=== PATIENT | male | born 1975 | race Caucasian/White ===

== ENCOUNTER 2018-12-14 15:32 | Inpatient (IN) ==
[2018-12-14 16:10] LABS: Basophils % 0.2 %; Eosinophils % 0.2 %; Hematocrit 38.6 % (37.5-50.1); Hemoglobin 13.8 g/dL (12.9-16.9); Immature Granulocytes % 0.4 % (0-4); Lymphocytes # 1.9 K/mcL (0.6-4.6); Lymphocytes % 15.6 %; Mean Corpuscular HGB Conc 35.8 g/dL (31.6-35.5); Mean Corpuscular Hemoglobin 29.5 pg (28.0-33.3); Mean Corpuscular Volume 82.5 fL (83.0-100.0); Mean Platelet Volume 8.9 fL (9.4-12.4); Monocytes # 1.4 K/mcL (0.0-1.3); Monocytes % 11.5 %; Neutrophils # 8.9 K/mcL (1.6-8.9); Platelet Count 234 K/mcL (140-400); Red Blood Count 4.68 M/mcL (4.19-5.50); Red Cell Distribution Width 12.4 % (11.5-14.5); Segmented Neutrophils % 72.1 %
[2018-12-14] MEDS ORDERED: Isovue-370 500 ML BOTTLE IVP ONE (16:16)
[2018-12-14] MEDS ORDERED: 0.9 % Sodium Chloride 1,000 ML IVC ONE (16:26)
--- NOTE | 2018-12-14 16:26 | Emergency Department Note ---
Disposition Clinical Impression: Acute appendicitis Qualifiers: Acute appendicitis type: with localized peritonitis Appendicitis gangrene presence: unspecified whether gangrene present Appendicitis perforation presence: with perforation Appendicitis abscess presence: with abscess Qualified Code(s): K35.33 - Acute appendicitis with perforation and localized peritonitis, with abscess Disposition: Admitted As Inpatient Condition: Fair Time of Disposition: 17:16 General Adult HPI - General Chief complaint: ED Abdominal Pain Stated complaint: abd pain Time Seen by Provider: 12/14/18 15:42 Source: patient, family Limitations: no limitations Nursing Notes Reviewed: Yes Vital Signs Reviewed: Yes - History of Present Illness HPI Narrative: Right lower quadrant pain which is a sore sensation and began last night at home and is constant and worse when he moves his body and he has had a appendectomy will abscess in the past but has never had a appendectomy. Temperature last night 101 degrees. The night before was 100 degrees but does not have abdominal pain at that time. He denies any dysuria or urinary frequency, blood in the urine or stool, testicular pain or penile discharge. No vomiting or diarrhea. Social history: No smoking or alcohol Pain Scale: 0 - Related Data Home Medications Medication Instructions Recorded Confirmed RX: No Known Home Drugs 12/14/18 12/14/18 Allergies Allergy/AdvReac Type Severity Reaction Status Date / Time No Known Allergies Allergy Verified 07/21/16 16:34 All systems ED: reviewed and negative except as stated. Past Medical History - Past Medical History Medical history: Reports: other Psychiatric history: Reports: no psych history - Social History Smoking Status: Never smoker Smokeless Tobacco Status: No Alcohol use: Reports: none Drug use: Reports: none Physical Exam CONSTITUTIONAL: Alert and oriented X3, well-nourished, well appearing, in no apparent distress HEAD: Normocephalic; atraumatic. EYES: PERRL, no scleral icterus. NOSE: The nose is normal in appearance without rhinorrhea RESP: Normal chest excursion with respiration; breath sounds clear and equal b ilaterally; no wheezes, rhonchi, or rales CARD: Regular rhythm, without murmurs, rub or gallop ABD: Non-distended; normal appearance, does have minimal pain with palpation just lateral to McBurney's point but soft without rigidity, rebound, guarding. Elsewhere the abdomen is non-tender, soft,without rigidity, rebound or guarding SKIN: Normal for age and race; warm and dry; no apparent lesions : Penis and testicles are normal appearance, no hernias are palpated, no penile discharge. No masses. - General Limitations: no limitations General appearance: alert, in no apparent distress Course Vital Signs Temperature 99.5 F 12/14/18 15:33 Pulse Rate 110 12/14/18 15:33 Respiratory Rate 20 12/14/18 15:33 Blood Pressure 135/82 12/14/18 15:33 O2 Sat by Pulse Oximetry 99 12/14/18 15:33 Temperature 98.0 F 12/14/18 22:16 Pulse Rate 86 12/14/18 22:16 Respiratory Rate 16 12/14/18 22:16 Blood Pressure 112/74 12/14/18 22:16 O2 Sat by Pulse Oximetry 98 12/14/18 21:25 Oxygen Delivery Oxygen Delivery Room Air Medical Decision Making - MDM Narrative Medical decision making narrative: Laboratory evaluation, IV contrast CT, results pending. Urine testing. 1626 I spoke with Col Rad and pt w retroperitoneal abscess into the psosas muscle and iliacus muscle and likely a retained appendolith. It is [id number] Ferguson who accepts for admission andzosyn and no flagyl and she will take for [facility] [place] [employer] 1729 - Lab Data Lab results reviewed: Yes I reviewed the patient's lab results. Result diagrams: 12/14/18 15:45 12/14/18 15:45 Lab Results 12/14/18 12/14/18 12/14/18 Range/Units 15:45 15:45 16:49 WBC 12.4 H (4.3-11.1) K/mcL RBC 4.68 (4.19-5.50) M/mcL Hgb 13.8 (12.9-16.9) g/dL Hct 38.6 (37.5-50.1) % MCV 82.5 L (83.0-100.0) fL MCH 29.5 (28.0-33.3) pg MCHC 35.8 H (31.6-35.5) g/dL RDW 12.4 (11.5-14.5) % Plt Count 234 (140-400) K/mcL MPV 8.9 L (9.4-12.4) fL Immature Gran % 0.4 (0-4) % Seg Neutrophils % 72.1 % Lymphocytes % 15.6 % Monocytes % 11.5 % Eosinophils % 0.2 % Basophils % 0.2 % Neutrophils # 8.9 (1.6-8.9) K/mcL Lymphocytes # 1.9 (0.6-4.6) K/mcL Monocytes # 1.4 H (0.0-1.3) K/mcL Eosinophils # 0.0 (0.0-0.6) K/mcL Basophils # 0.0 (0.0-0.2) K/mcL Sodium 132 L (136-145) mEq/L Potassium 3.8 (3.5-5.1) mEq/L Chloride 96 L (98-107) mEq/L Carbon Dioxide 24 (23-29) mEq/L BUN 17 (6-20) mg/dL Creatinine 0.96 (0.70-1.30) mg/dL Est GFR ( Amer) > 60 (> 60) Est GFR (Non-Af Amer) > 60 (> 60) BUN/Creatinine Ratio 18 (6-26) Glucose 99 (70-105) mg/dL Calculated Osmolality 276 L (280-300) Calcium 9.3 (8.6-10.3) mg/dL Urine Color Yellow (Yellow) Urine Clarity Clear (Clear) Urine pH 5.5 (5.0-8.0) pH Units Ur Specific [place] 1.018 (1.010-1.025) Urine Protein Negative (Neg-Trace) mg/dL Urine Glucose (UA) Normal (Normal) mg/dL Urine Ketones 40 H (Negative) mg/dL Urine Blood Negative (Negative) Urine Nitrite Negative (Negative) Urine Bilirubin Negative (Negative) Urine Urobilinogen Normal (Normal) mg/dL Ur Leukocyte Esterase Negative (Negative) - Radiology Data Radiology results reviewed: Yes I reviewed the patient's radiology results. Critical Care Time Critical Care Time: No
[2018-12-14 16:28] LABS: BUN/Creatinine Ratio 18 (6-26); Blood Urea Nitrogen 17 mg/dL (6-20); Calcium 9.3 mg/dL (8.6-10.3); Carbon Dioxide 24 mEq/L (23-29); Chloride 96 mEq/L (98-107); Glucose 99 mg/dL (70-105); Osmolality,Calculated 276 (280-300); Potassium 3.8 mEq/L (3.5-5.1); Sodium 132 mEq/L (136-145); eGFR For Non-African Americans > 60 (> 60)
[2018-12-14] MEDS ORDERED: Piperacillin/Tazobactam 3.375 GM in 0.9 % Sodium Chloride Mini Bag 100 ML IVPB ONE (17:16)
[2018-12-14] MEDS ORDERED: MetroNIDAZOLE 500 MG/100 ML 500 MG/100 ML BAG IVPB ONE (17:17)
[2018-12-14 17:23] LABS: Bilirubin,Urine Negative (Negative); Blood,Urine Negative (Negative); Clarity,Urine Clear (Clear); Color,Urine Yellow (Yellow); Glucose,Urine (UA) Normal (Normal); Ketones,Urine 40 mg/dL (Negative); Leukocyte Esterase,Urine Negative (Negative); Nitrite,Urine Negative (Negative); PH,Urine 5.5 pH Units (5.0-8.0); Protein,Urine Negative (Neg-Trace); Specific Gravity,Urine 1.018 (1.010-1.025); Urobilinogen,Urine Normal (Normal)
--- NOTE | 2018-12-14 17:42 | General Surg History&Physical ---
Date of Encounter: 12/14/18 Time of Encounter: 17:30 Assessment and Plan (1) Acute appendicitis Current Visit: Yes Status: Acute The assessment and plan as outlined above was discussed with the patient and/or family members who expressed understanding and agreement. All questions were answered. Pt diagnosis of ruptured acute appendicitis is discussed. Laparoscopic Drainage with possible Appendectomy is recommended. Procedure for the surgery, risks and benefits are discussed in detail. Possible known complications for Laparoscopic Drainage with possible Appendectomy are bleeding, infection, ureteral injury, small intestine or colon injury, bladder injury, stroke, DVT/PE, MT or . Pt understands these risks, which in this case are low. Pt wishes to proceed with surgery as soon as possible. Informed consent is obtained. Pt condition is stable. Surgery is scheduled. Qualifiers: Acute appendicitis type: with localized peritonitis Appendicitis gangrene presence: unspecified whether gangrene present Appendicitis perforation presence: with perforation Appendicitis abscess presence: with abscess Qualified Code(s): K35.33 - Acute appendicitis with perforation and localized peritonitis, with abscess History of Present Illness Chief complaint: RLQ abdominal pain HPI: Mr. Armijo is a 43 year old male Pt presents to [facility] ED c/o severe RLQ abdominal pain. The pain has progressively worsened over the last day. Pain reportedly began around the belly button and has settled in RLQ. Pt reports nausea without vomiting. He has had a ruptured appendix before that was not followed-up for definitive surgery d/t pt's schedule. He states this pain is the same. Pt denies changes in urination or bowel movements. Reports +fever. Past Med Surg Social Fam HX - Past Medical History Medical history: other Additional medical history: appenicitis Psychiatric history: no psych history - Social History Smoking Status: Never smoker Smokeless Tobacco Status: No Alcohol use: none Drug use: none Medications and Allergies No Known Home Drugs 12/14/18 [History] Allergy/AdvReac Type Severity Reaction Status Date / Time No Known Allergies Allergy Verified 07/21/16 16:34 Review of Systems All systems PM: The remainder of the systems were reviewed and are negative - Constitutional as per HPI, anorexia, chills, fever(s), no weakness, no weight loss - EENT Nose, mouth and throat: dry mouth, nasal congestion, nasal discharge, sinus pain, sinus pressure, no dysphagia, no sore throat, no throat swelling - Cardiovascular no chest pain, no diaphoresis, no dyspnea, no edema - Respiratory cough, no dyspnea, no wheezing - Gastrointestinal abdominal pain, bloating, constipation, nausea, no diarrhea, no vomiting - Genitourinary difficulty urinating, urinary hesitancy, no dysuria, no urinary frequency - Musculoskeletal back pain, no joint swelling, no neck pain - Integumentary dry skin, no pruritus, no rash, no wounds, no jaundice - Neurological no dizziness, no focal weakness, no headache(s), no weakness - Psychiatric no anxiety, no depression - Hematologic/Lymphatic no easy bleeding, no easy bruising General Surgery Exam Initial Vital Signs Temp Pulse Resp BP Pulse Ox 99.5 F 110 20 135/82 99 12/14/18 15:33 12/14/18 15:33 12/14/18 15:33 12/14/18 15:33 12/14/18 15:33 - General physical appearance well developed, well nourished, no distress, moderate pain - Eyes PERRL, normal ocular movement. negative: icteric - ENT no congestion, nasal discharge, dry mucosa - Neck no masses, no lymphadectomy, no venous distension - Respiratory normal respiratory effort, clear to auscultation - Cardiovascular Cardiovascular exam: Present: RRR - Abdomen Abdomen general surgery: Present: bowel sounds present, soft, tender, guarding. Absent: rebound Abdominal Tenderness: Present: RLQ - Genitourinary Present: normal penis with no external lesions - Integumentary Integumentary general surgery: Present: warm and dry - Neurologic Present: CN 2-12 grossly intact, normal coordination - Musculoskeletal Present: normal posture - Psychiatric Psychiatric general surgery: Present: A&Ox3, appropriate Results - Labs 12/14/18 15:45 12/14/18 15:45 Abnormal lab results WBC 12.4 K/mcL (4.3-11.1) H 12/14/18 15:45 MCV 82.5 fL (83.0-100.0) L 12/14/18 15:45 MCHC 35.8 g/dL (31.6-35.5) H 12/14/18 15:45 MPV 8.9 fL (9.4-12.4) L 12/14/18 15:45 Monocytes # 1.4 K/mcL (0.0-1.3) H 12/14/18 15:45 Sodium 132 mEq/L (136-145) L 12/14/18 15:45 Chloride 96 mEq/L (98-107) L 12/14/18 15:45 Calculated Osmolality 276 (280-300) L 12/14/18 15:45 Urine Ketones 40 mg/dL (Negative) H 12/14/18 16:49 Diabetes panel 12/14/18 Range/Units 15:45 Sodium 132 L (136-145) mEq/L Potassium 3.8 (3.5-5.1) mEq/L Chloride 96 L (98-107) mEq/L Carbon Dioxide 24 (23-29) mEq/L BUN 17 (6-20) mg/dL Creatinine 0.96 (0.70-1.30) mg/dL Glucose 99 (70-105) mg/dL Calcium 9.3 (8.6-10.3) mg/dL Calcium panel 12/14/18 Range/Units 15:45 Calcium 9.3 (8.6-10.3) mg/dL Pituitary panel 12/14/18 Range/Units 15:45 Sodium 132 L (136-145) mEq/L Potassium 3.8 (3.5-5.1) mEq/L Chloride 96 L (98-107) mEq/L Carbon Dioxide 24 (23-29) mEq/L BUN 17 (6-20) mg/dL Creatinine 0.96 (0.70-1.30) mg/dL Glucose 99 (70-105) mg/dL Calcium 9.3 (8.6-10.3) mg/dL Adrenal panel 12/14/18 Range/Units 15:45 Sodium 132 L (136-145) mEq/L Potassium 3.8 (3.5-5.1) mEq/L Chloride 96 L (98-107) mEq/L Carbon Dioxide 24 (23-29) mEq/L BUN 17 (6-20) mg/dL Creatinine 0.96 (0.70-1.30) mg/dL Glucose 99 (70-105) mg/dL Calcium 9.3 (8.6-10.3) mg/dL All other labs normal. - Imaging CT scan - abdomen: image reviewed CT scan - chest: image reviewed
--- NOTE | 2018-12-14 18:28 | Anesthesia Evaluation PreOp ---
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 Other Medical History: Denies Any Significant HX Anesthesia History: No Prior Anesthetic Complications, Past Anesthesia Alcohol Use: none Drug use: none Medications and Allergies No Known Home Drugs 12/14/18 [History] Allergy/AdvReac Type Severity Reaction Status Date / Time No Known Allergies Allergy Verified 07/21/16 16:34 - Meds/Allergy Pre-op Review Medications Reviewed: Yes Allergies Reviewed: Yes Anesthesia Results - Labs 12/14/18 15:45 12/14/18 15:45 Anesthesia Exam Vital Signs/O2 Sat/Glucose, Most Recent Temp Pulse Resp BP Pulse Ox 102.0 F H 100 16 123/78 100 12/14/18 16:27 12/14/18 18:00 12/14/18 18:00 12/14/18 18:00 12/14/18 18:00 Weight: 74 kg - BMI 24 NPO (# of Hours): >1030 - HEENT Mallampati: I Teeth: Edentulous Oral Opening: Greater than 3 - Cardiac Rhythm: Regular - Pulmonary Breath Sounds: bilateral Clear Respiratory Effort: Symmetrical Anesthesia Assess/Plan ASA Score: 2, E Anesthetic Plan: General Monitoring Plan: Standard Monitors Recovery Plan: PACU
[2018-12-14] MEDS ORDERED: *HR* Propofol 200 MG/20 ML VIAL IVP ONE (19:06)
[2018-12-14] MEDS ORDERED: *HR* FentaNYL (PF) 100 MCG/2 ML VIAL ONE (19:06)
[2018-12-14] MEDS ORDERED: *HR* Midazolam HCl 2 MG/2 ML VIAL ONE (19:06)
[2018-12-14] MEDS ORDERED: Lidocaine -MPF 2% 2 ML VIAL ONE (19:10)
[2018-12-14] MEDS ORDERED: Acetaminophen IV 1,000 MG/100 ML INFUS..BTL IVPB ONE (19:11)
[2018-12-14] MEDS ORDERED: Albuterol 2.5 MG/3 ML NEBULIZER IH ONE (19:11)
[2018-12-14] MEDS ORDERED: *HR* Promethazine 25 MG/ML VIAL IVP PRN (19:11)
[2018-12-14] MEDS ORDERED: *HR* OxyCODONE Immed Rel 5 MG TABLET PO PRN (19:11)
[2018-12-14] MEDS ORDERED: Ketorolac 30 MG/ML VIAL IVP ONE (19:11)
[2018-12-14] MEDS ORDERED: *HR* Rocuronium Bromide 50 MG/5 ML VIAL ONE (19:11)
[2018-12-14] MEDS ORDERED: *HR* HYDROmorphone (PF) 1 MG/ML SYRINGE IVP PRN (19:11)
[2018-12-14] MEDS ORDERED: Ondansetron 4 MG/2 ML VIAL IVP ONE (19:11)
[2018-12-14] MEDS ORDERED: *HR* Meperidine 25 MG/ML SYRINGE IVP PRN (19:11)
[2018-12-14] MEDS ORDERED: Dexamethasone 4 MG/ML VIAL ONE (19:12)
[2018-12-14] MEDS ORDERED: Bupivacaine/EPI 1:200k 0.5%PF 30 ML VIAL ONE (19:14)
--- NOTE | 2018-12-14 20:02 | Anesthesia Evaluation Post Op ---
Date of Encounter: 12/14/18 Time of Encounter: 21:31 - Discharge PostOp Status: Transfer Patient to floor (Patient's vital signs have been reviewed. Patient is stable postoperatively and has adequately recovered from anesthesia. Patient is determined to have stable airway patency and respiratory function including respiratory rate and oxygen saturation. Patient has a stable heart rate, blood pressure and adequate hydration. Patients mental status is acceptable. Patients temperature is appropriate. Pain and nausea are adequately controlled.)
--- NOTE | 2018-12-14 21:06 | Operative Note ---
Date of procedure: 12/14/18 Pre-op diagnosis: intraabdominal abscess d/t ruptured appendicitis Post-op diagnosis: other (retroperitoneal abscess; no ruptured appendicitis) Procedure: Exploratory laparoscopy with retroperitoneal dissection and drainage Anesthesia: ASHLEY Surgeon: Zayda Kam Was there an assistant manager bilingual present: No Estimated blood loss (cc): 50 Specimen: none Condition: stable Disposition: PACU Procedure in Detail: This 43 y/o male was taken to the operating room and placed in the supine position. Anterior abdominal wall is prepped and draped in the usual sterile fashion. A 1-2 cm curvilinear incision is made in the supraumbilical region. Subcutaneous tissues are dissected down to anterior rectus fascia. Fascia is grasped with Gabriela clamp, stay sutures were placed in the fascia is divided. Posterior rectus fascia and peritoneum were elevated and divided in the same manner. A Nisha port is inserted and pneumoperitoneum was achieved. Exploration of the intra-abdominal cavity reveals normal intra-abdominal viscera. There is no sign of ruptured acute appendicitis. There is no intraperitoneal abscess. After the injection of 0.5% Marcaine, a 5 mm port is inserted under direct visualization in the suprapubic area. Also after the injection of 0.5% Marcaine a 1012 millimeter port is inserted in the left lower quadrant under direct visualization. The patient is rotated to his left. After it is determined there is no intra-abdominal abscess peritoneum along the right pericolic border is divided and medialized. The retroperitoneum was entered and dissected. Great care is taken to avoid any injury to vascular structures. The psoas muscle is identified and explored down to the iliac's muscle. There is no sign of any obvious intramuscular abscess the muscle was not divided at any aspect down its course. This irrigation was carried out of the retroperitoneum and a 10 flat KELSY drain is placed. Hemostasis was perfected using electrocautery and 5 g of Saul. The pneumoperitoneum was allowed to escape. Ports are removed under direct visualization. The fascia both infraumbilical area and left lower quadrant port sites are closed with 0 Vicryl sutures. The drain is sewn into place using 3-0 nylon. Steri-Strips are placed, sterile Band-Aids are placed and a drain sponge is placed. Patient tolerated procedure well and was taken to the PACU in good condition.
[2018-12-14] MEDS ORDERED: OXYCODONE Oral CONC 10 MG/0.5 ML ORAL.SYG SL PRN (22:13)
[2018-12-14] MEDS ORDERED: *HR* OxyCODONE/APAP 5/325 TABLET PO PRN (22:13)
[2018-12-15] MEDS: Piperacillin/Tazobactam 3.375 GM in 0.9 % Sodium Chloride Mini Bag 100 ML IVPB SCH ×2 (00:29→08:53)
[2018-12-15 06:52] LABS: Basophils % 0.1 %; Hematocrit 38.5 % (37.5-50.1); Hemoglobin 13.7 g/dL (12.9-16.9); Immature Granulocytes % 0.4 % (0-4); Lymphocytes % 8.9 %; Mean Corpuscular HGB Conc 35.6 g/dL (31.6-35.5); Mean Corpuscular Volume 84.2 fL (83.0-100.0); Mean Platelet Volume 9.1 fL (9.4-12.4); Monocytes # 0.7 K/mcL (0.0-1.3); Monocytes % 6.2 %; Neutrophils # 9.1 K/mcL (1.6-8.9); Platelet Count 203 K/mcL (140-400); Red Blood Count 4.57 M/mcL (4.19-5.50); Red Cell Distribution Width 12.8 % (11.5-14.5); Segmented Neutrophils % 84.4 %
[2018-12-15 08:10] VITALS: BP 108/71
[2018-12-15] MEDS ORDERED: Pantoprazole 40 MG VIAL IVP SCH (09:00)
--- NOTE | 2018-12-15 14:11 | Discharge Summary ---
Date of Encounter: 12/15/18 Time of Encounter: 13:00 - Discharge Diagnosis (1) Retroperitoneal abscess Priority: Primary Status: Acute Comments: Not d/t ruptured appendicitis. Maintain drain. Drain will be DC at office appt. PO abx and pain meds. General Surgery Exam Initial Vital Signs Temp Pulse Resp BP Pulse Ox 99.5 F 110 20 135/82 99 12/14/18 15:33 12/14/18 15:33 12/14/18 15:33 12/14/18 15:33 12/14/18 15:33 - General physical appearance no distress, moderate pain, other (Looks much improved) - Eyes PERRL, normal ocular movement - ENT normal mucosa, no congestion. negative: nasal discharge - Neck no masses, no lymphadectomy, no venous distension - Respiratory normal respiratory effort, clear to auscultation - Cardiovascular Cardiovascular exam: Present: RRR - Abdomen Abdomen general surgery: Present: bowel sounds present, soft, wound (Incisions C/D/I and drain with serosanguinous drainage). Absent: distended - Incision Incision: Present: clean and dry, intact - Genitourinary Present: normal penis with no external lesions - Integumentary Integumentary general surgery: Present: warm and dry - Neurologic Present: CN 2-12 grossly intact - Musculoskeletal Present: normal posture - Psychiatric Psychiatric general surgery: Present: A&Ox3, appropriate - Hospital Course Hospital course: Mr. Armijo is a 43 year old male - Time Spent with Patient Total time spent providing and/or coordinating discharge services: Specific discharge activities: No heavy lifting or straining >25 pounds until drain DC'd - Discharge Medications Prescriptions: No Action No Known Home Drugs 1 each .ROUTE AD each Home Medications: Ciprofloxacin [Cipro] 500 mg PO BID 14 Days #28 tablet 12/15/18 [Rx] Oxycodone HCl/Acetaminophen [Percocet 5-325 mg Tablet] 1 each PO Q4HR 7 Days #28 tablet 12/15/18 [Rx] metroNIDAZOLE [Flagyl] 500 mg PO TID 14 Days #42 tablet 12/15/18 [Rx] Allergies/Adverse Reactions: Allergy/AdvReac Type Severity Reaction Status Date / Time No Known Allergies Allergy Verified 07/21/16 16:34 Date of admission: 12/14/18 18:20 Primary care physician: PCP NONE Discharging clinician: Zayda Kam (f/u Hyun Holt, [facility]. Call for appt.) Procedures and tests throughout hospitalization: Leukocytosis resolved after surgery Labs on day of discharge: Labs from last 24 hours 12/15/18 12/14/18 12/14/18 06:07 16:49 15:45 WBC 10.8 RBC 4.57 Hgb 13.7 Hct 38.5 MCV 84.2 MCH 30.0 MCHC 35.6 H RDW 12.8 Plt Count 203 MPV 9.1 L Immature Gran % 0.4 Seg Neutrophils % 84.4 Lymphocytes % 8.9 Monocytes % 6.2 Eosinophils % 0.0 Basophils % 0.1 Neutrophils # 9.1 H Lymphocytes # 1.0 Monocytes # 0.7 Eosinophils # 0.0 Basophils # 0.0 Sodium 132 L Potassium 3.8 Chloride 96 L Carbon Dioxide 24 BUN 17 Creatinine 0.96 Est GFR ( Amer) > 60 Est GFR (Non-Af Amer) > 60 BUN/Creatinine Ratio 18 Glucose 99 Calculated Osmolality 276 L Calcium 9.3 Urine Color Yellow Urine Clarity Clear Urine pH 5.5 Ur Specific [place] 1.018 Urine Protein Negative Urine Glucose (UA) Normal Urine Ketones 40 H Urine Blood Negative Urine Nitrite Negative Urine Bilirubin Negative Urine Urobilinogen Normal Ur Leukocyte Esterase Negative 12/14/18 15:45 WBC 12.4 H RBC 4.68 Hgb 13.8 Hct 38.6 MCV 82.5 L MCH 29.5 MCHC 35.8 H RDW 12.4 Plt Count 234 MPV 8.9 L Immature Gran % 0.4 Seg Neutrophils % 72.1 Lymphocytes % 15.6 Monocytes % 11.5 Eosinophils % 0.2 Basophils % 0.2 Neutrophils # 8.9 Lymphocytes # 1.9 Monocytes # 1.4 H Eosinophils # 0.0 Basophils # 0.0 Sodium Potassium Chloride Carbon Dioxide BUN Creatinine Est GFR ( Amer) Est GFR (Non-Af Amer) BUN/Creatinine Ratio Glucose Calculated Osmolality Calcium Urine Color Urine Clarity Urine pH Ur Specific [place] Urine Protein Urine Glucose (UA) Urine Ketones Urine Blood Urine Nitrite Urine Bilirubin Urine Urobilinogen Ur Leukocyte Esterase - Impressions ITS Impressions Abdomen/Pelvis CT 12/14/18 16:16 IMPRESSION: Findings compatible with a retroperitoneal abscess, possibly secondary to recurrent appendicitis (the appendix is not visualized). Findings were discussed with Terrell Acevedo at 5:13 pm on 12/14/2018. D/ / Clovis Mcdonnell MD / Clovis Mcdonnell MD Interpreting Provider: Clovis Mcdonnell MD - Patient Status Disposition: Home, Self-Care Condition: Good Functional capacity at discharge: independent ambulation Overall status at discharge: patient is progressing back to baseline - Discharge Instructions Follow Up With: NONE,PCP [Primary Care Provider] -
== END 2018-12-15 16:36 | disposition home or self-care (01) | DRG 356 ==
LOC: 3ANU 15:32 → EMEROOARM 15:32 → 3ANU 18:44
PROVIDERS: ADMIT Surgery; ATTEND Surgery

== ENCOUNTER 2022-04-14 09:00 | Inpatient (IN) ==
[2022-04-14] MEDS ORDERED: Ondansetron 4 MG/2 ML VIAL IVP PRN (09:57)
[2022-04-14] MEDS ORDERED: Acetaminophen 325 MG TABLET PO PRN (09:59)
[2022-04-14 10:29] LABS: Basophils # 0.1 K/mcL (0.0-0.2); Basophils % 0.8 %; Eosinophils # 0.1 K/mcL (0.0-0.6); Eosinophils % 1.3 %; Hematocrit 40.6 % (37.5-50.1); Hemoglobin 13.9 g/dL (12.9-16.9); Immature Granulocytes % 0.8 % (0-4); Lymphocytes # 1.9 K/mcL (0.6-4.6); Lymphocytes % 25.3 %; Mean Corpuscular HGB Conc 34.2 g/dL (31.6-35.5); Mean Corpuscular Hemoglobin 29.6 pg (28.0-33.3); Mean Corpuscular Volume 86.4 fL (83.0-100.0); Mean Platelet Volume 8.4 fL (9.4-12.4); Monocytes # 0.4 K/mcL (0.0-1.3); Monocytes % 5.6 %; Neutrophils # 5.1 K/mcL (1.6-8.9); Platelet Count 378 K/mcL (140-400); Red Cell Distribution Width 11.5 % (11.5-14.5); Segmented Neutrophils % 66.2 %; White Blood Count 7.6 K/mcL (4.3-11.1)
[2022-04-14 10:46] LABS: INR 1.2; Prothrombin Time 13.4 Seconds (9.4-12.1)
[2022-04-14 10:48] LABS: BUN/Creatinine Ratio 15 (6-26); Blood Urea Nitrogen 13 mg/dL (6-20); Calcium 9.5 mg/dL (8.6-10.3); Carbon Dioxide 31 mEq/L (23-29); Chloride 100 mEq/L (98-107); Glucose 101 mg/dL (70-105); Magnesium 2.2 mg/dL (1.6-2.6); Osmolality,Calculated 282 (280-300); Phosphorous 3.5 mg/dL (2.7-4.5); Potassium 4.3 mEq/L (3.5-5.1); Sodium 136 mEq/L (136-145); eGFR For African Americans > 60 (> 60); eGFR For Non-African Americans > 60 (> 60)
[2022-04-14] MEDS: Pantoprazole 40 MG VIAL IVP SCH (12:40)
[2022-04-14] MEDS: Piperacillin/Tazobactam 3.375 GM in 0.9 % Sodium Chloride Mini Bag 100 ML IVPB SCH (18:30)
[2022-04-15] MEDS: Piperacillin/Tazobactam 3.375 GM in 0.9 % Sodium Chloride Mini Bag 100 ML IVPB SCH ×3 (01:08→15:35)
[2022-04-15 07:01] LABS: Basophils # 0.1 K/mcL (0.0-0.2); Basophils % 1.1 %; Eosinophils # 0.2 K/mcL (0.0-0.6); Eosinophils % 1.8 %; Hematocrit 44.5 % (37.5-50.1); Hemoglobin 14.9 g/dL (12.9-16.9); Immature Granulocytes % 0.9 % (0-4); Lymphocytes # 2.1 K/mcL (0.6-4.6); Lymphocytes % 24.2 %; Mean Corpuscular HGB Conc 33.5 g/dL (31.6-35.5); Mean Corpuscular Volume 86.6 fL (83.0-100.0); Mean Platelet Volume 8.3 fL (9.4-12.4); Monocytes # 0.6 K/mcL (0.0-1.3); Monocytes % 6.5 %; Neutrophils # 5.6 K/mcL (1.6-8.9); Platelet Count 408 K/mcL (140-400); Red Blood Count 5.14 M/mcL (4.19-5.50); Red Cell Distribution Width 11.8 % (11.5-14.5); Segmented Neutrophils % 65.5 %; White Blood Count 8.5 K/mcL (4.3-11.1)
[2022-04-15 07:21] LABS: BUN/Creatinine Ratio 10 (6-26); Blood Urea Nitrogen 11 mg/dL (6-20); Calcium 8.6 mg/dL (8.6-10.3); Carbon Dioxide 26 mEq/L (23-29); Chloride 102 mEq/L (98-107); Glucose 100 mg/dL (70-105); Magnesium 2.3 mg/dL (1.6-2.6); Osmolality,Calculated 279 (280-300); Phosphorous 3.5 mg/dL (2.7-4.5); Potassium 4.3 mEq/L (3.5-5.1); Sodium 135 mEq/L (136-145); eGFR For African Americans > 60 (> 60); eGFR For Non-African Americans > 60 (> 60)
[2022-04-15] MEDS: Pantoprazole 40 MG VIAL IVP SCH (07:50)
[2022-04-15] MEDS ORDERED: *HR* Rocuronium Bromide 50 MG/5 ML VIAL ONE ×2 (08:10→10:11)
[2022-04-15] MEDS ORDERED: *HR* FentaNYL (PF) 100 MCG/2 ML VIAL ONE ×2 (08:10→10:32)
[2022-04-15] MEDS ORDERED: *HR* Midazolam HCl 2 MG/2 ML VIAL ONE (08:10)
[2022-04-15] MEDS ORDERED: Lidocaine -MPF 2% 5 ML VIAL ONE (08:10)
[2022-04-15] MEDS ORDERED: Ondansetron 4 MG/2 ML VIAL ONE (08:10)
[2022-04-15] MEDS ORDERED: *HR* Propofol 200 MG/20 ML VIAL IVP ONE (08:10)
[2022-04-15] MEDS ORDERED: Lidocaine -MPF 4% 5 ML AMPUL ONE (08:10)
[2022-04-15] MEDS ORDERED: *HR* Succinylcholine 200 MG/10 ML VIAL IVP ONE (08:10)
[2022-04-15] MEDS ORDERED: Acetaminophen IV 1,000 MG/100 ML BAG IVPB ONE ×2 (08:58→09:40)
[2022-04-15] MEDS ORDERED: Naloxone 0.4 MG/ML INJ IVP PRN ×2 (09:00→11:07)
[2022-04-15] MEDS ORDERED: *HR* HYDROmorphone PF 0.5 MG/0.5 ML SYRINGE IVP PRN ×2 (09:00→11:07)
[2022-04-15] MEDS ORDERED: Albuterol 2.5 MG/3 ML NEBULIZER IH PRN ×2 (09:00→11:07)
[2022-04-15] MEDS ORDERED: *HR* FentaNYL (PF) 100 MCG/2 ML VIAL IVP PRN ×2 (09:00→11:07)
[2022-04-15] MEDS ORDERED: EPHEDrine 50 MG/ML VIAL ONE (09:49)
[2022-04-15] MEDS ORDERED: Sugammadex Sodium 200 MG/2 ML VIAL IV ONE (10:25)
[2022-04-15] MEDS ORDERED: *HR* HYDROMORPHONE 2 MG/ML VIAL ONE (10:31)
[2022-04-15] MEDS ORDERED: Ondansetron 4 MG/2 ML VIAL IVP PRN (11:07)
[2022-04-15] MEDS: *HR* OxyCODONE Immed Rel 5 MG TABLET PO PRN ×3 (11:22→22:20)
[2022-04-16] MEDS: Piperacillin/Tazobactam 3.375 GM in 0.9 % Sodium Chloride Mini Bag 100 ML IVPB SCH ×3 (00:05→15:13)
[2022-04-16 03:18] LABS: Basophils % 0.2 %; Eosinophils % 0.1 %; Hematocrit 42.5 % (37.5-50.1); Hemoglobin 14.8 g/dL (12.9-16.9); Immature Granulocytes % 1.1 % (0-4); Lymphocytes # 1.5 K/mcL (0.6-4.6); Lymphocytes % 8.4 %; Mean Corpuscular HGB Conc 34.8 g/dL (31.6-35.5); Mean Corpuscular Hemoglobin 29.5 pg (28.0-33.3); Mean Corpuscular Volume 84.8 fL (83.0-100.0); Mean Platelet Volume 8.3 fL (9.4-12.4); Monocytes # 1.1 K/mcL (0.0-1.3); Neutrophils # 15.2 K/mcL (1.6-8.9); Platelet Count 434 K/mcL (140-400); Red Blood Count 5.01 M/mcL (4.19-5.50); Red Cell Distribution Width 11.9 % (11.5-14.5); Segmented Neutrophils % 84.2 %
[2022-04-16 03:19] LABS: White Blood Count 18.1 K/mcL (4.3-11.1)
[2022-04-16 03:35] LABS: BUN/Creatinine Ratio 14 (6-26); Blood Urea Nitrogen 13 mg/dL (6-20); Calcium 9.1 mg/dL (8.6-10.3); Carbon Dioxide 27 mEq/L (23-29); Chloride 100 mEq/L (98-107); Glucose 150 mg/dL (70-105); Magnesium 2.1 mg/dL (1.6-2.6); Osmolality,Calculated 281 (280-300); Phosphorous 3.7 mg/dL (2.7-4.5); Potassium 4.2 mEq/L (3.5-5.1); Sodium 134 mEq/L (136-145); eGFR For African Americans > 60 (> 60); eGFR For Non-African Americans > 60 (> 60)
[2022-04-16] MEDS: *HR* OxyCODONE Immed Rel 5 MG TABLET PO PRN (03:56)
[2022-04-16] MEDS: Pantoprazole 40 MG VIAL IVP SCH (08:09)
[2022-04-16] MEDS ORDERED: Morphine Sulfate 2 MG/ML SYRINGE IVP PRN (10:47)
[2022-04-16] MEDS ORDERED: Ketorolac 30 MG/ML VIAL IVP ONE (10:50)
[2022-04-16] MEDS ORDERED: Scopolamine Patch 1.5 MG PATCH.TD72 TD SCH (11:00)
[2022-04-16] MEDS: D5% in 0.45% NACL w KCl 20 MEQ/1,000 ML MLS IVC SCH ×2 (11:49→22:09)
[2022-04-16] MEDS: Acetaminophen IV 1,000 MG/100 ML BAG IVPB SCH ×2 (12:44→17:50)
[2022-04-16] MEDS: Ketorolac 30 MG/ML VIAL IVP SCH ×2 (14:32→17:50)
[2022-04-17] MEDS: Ketorolac 30 MG/ML VIAL IVP SCH ×4 (00:45→17:01)
[2022-04-17] MEDS: Piperacillin/Tazobactam 3.375 GM in 0.9 % Sodium Chloride Mini Bag 100 ML IVPB SCH ×3 (00:46→16:59)
[2022-04-17] MEDS: Acetaminophen IV 1,000 MG/100 ML BAG IVPB SCH ×4 (00:46→17:00)
[2022-04-17 06:06] LABS: Basophils # 0.1 K/mcL (0.0-0.2); Basophils % 0.6 %; Eosinophils # 0.1 K/mcL (0.0-0.6); Eosinophils % 1.1 %; Hematocrit 38.8 % (37.5-50.1); Hemoglobin 12.9 g/dL (12.9-16.9); Lymphocytes # 2.7 K/mcL (0.6-4.6); Lymphocytes % 23.7 %; Mean Corpuscular HGB Conc 33.2 g/dL (31.6-35.5); Mean Corpuscular Hemoglobin 29.2 pg (28.0-33.3); Mean Corpuscular Volume 87.8 fL (83.0-100.0); Mean Platelet Volume 8.3 fL (9.4-12.4); Monocytes % 8.4 %; Neutrophils # 7.5 K/mcL (1.6-8.9); Platelet Count 321 K/mcL (140-400); Red Blood Count 4.42 M/mcL (4.19-5.50); Red Cell Distribution Width 12.1 % (11.5-14.5); Segmented Neutrophils % 65.2 %; White Blood Count 11.6 K/mcL (4.3-11.1)
[2022-04-17 06:41] LABS: BUN/Creatinine Ratio 19 (6-26); Blood Urea Nitrogen 20 mg/dL (6-20); Calcium 8.6 mg/dL (8.6-10.3); Carbon Dioxide 27 mEq/L (23-29); Chloride 102 mEq/L (98-107); Glucose 112 mg/dL (70-105); Magnesium 2.1 mg/dL (1.6-2.6); Osmolality,Calculated 279 (280-300); Phosphorous 2.8 mg/dL (2.7-4.5); Potassium 4.2 mEq/L (3.5-5.1); Sodium 133 mEq/L (136-145); eGFR For African Americans > 60 (> 60); eGFR For Non-African Americans > 60 (> 60)
[2022-04-17] MEDS: Pantoprazole 40 MG VIAL IVP SCH (08:11)
[2022-04-17] MEDS: D5% in 0.45% NACL w KCl 20 MEQ/1,000 ML MLS IVC SCH ×2 (08:11→16:59)
[2022-04-18] MEDS: Piperacillin/Tazobactam 3.375 GM in 0.9 % Sodium Chloride Mini Bag 100 ML IVPB SCH ×2 (00:26→08:12)
[2022-04-18] MEDS: Ketorolac 30 MG/ML VIAL IVP SCH ×3 (00:26→11:33)
[2022-04-18] MEDS: Acetaminophen IV 1,000 MG/100 ML BAG IVPB SCH ×3 (00:28→11:33)
[2022-04-18] MEDS: D5% in 0.45% NACL w KCl 20 MEQ/1,000 ML MLS IVC SCH (03:15)
[2022-04-18] MEDS: Pantoprazole 40 MG VIAL IVP SCH (08:11)
[2022-04-18 11:36] VITALS: BP 109/70; PULSE 66; TEMP 97.7; O2SAT 98
== END 2022-04-18 14:31 | disposition home or self-care (01) | DRG 341 ==
LOC: 3ANU
PROVIDERS: ADMIT Surgery; ATTEND Surgery